=== PATIENT | female | born 1995 | race Caucasian/White ===

== ENCOUNTER 2019-11-28 09:00 | Outpatient (CLI) | payer MEDICAID ==
[2019-11-28] MEDS ORDERED: PRENAVITE1 TAB PO (09:12)
[2019-11-28] MEDS ORDERED: VITAMIN C500 M1 PO (09:13)
[2019-11-28 09:58] LABS: BACTERIA MANY /hpf (NEGATIVE); BILIRUBIN NEGATIVE (NEGATIVE); GLUCOSE NEGATIVE (NEGATIVE); KETONE NEGATIVE (NEGATIVE); NITRITE NEGATIVE (NEGATIVE); RED CELLS - URINE OCC /hpf (0-5); UROBILINOGEN NORMAL (NORMAL); WHITE CELLS - URINE 0-5 /hpf (NEGATIVE)
== END 2019-11-28 10:20 | disposition home or self-care (01) ==
LOC: D.LDO 09:00
PROVIDERS: ATTEND Obstetrics & Gynecology
DX: O26.899 Other specified pregnancy related conditions, unspecified trimester (principal); Z3A.00 Weeks of gestation of pregnancy not specified; M79.89 Other specified soft tissue disorders

== ENCOUNTER 2019-12-05 12:10 | Inpatient (IN) | payer MEDICAID ==
[2019-12-05] VITALS (8 sets, daily range): BP systolic 104–120; BP diastolic 53–74; Ht 157.5 cm; Wt 114.3 kg
[~2019-12-05] VITALS: Ht 157.5 cm; Wt 114.3 kg
--- NOTE | ~2019-12-05 | OP ---
PATIENT NAME: DENTON MADRID MEDICAL RECORD: [id number] LOCATION:[facility][id number] ADMISSION DATE:12/05/19 SURGEON: NETO HERRERA DO DATE OF OPERATION: 12/05/2019 PREOPERATIVE DIAGNOSES: Previous , oligohydramnios. POSTOPERATIVE DIAGNOSES: Previous , oligohydramnios. PRIMARY SURGEON: Neto Herrera DO ANESTHESIA: Spinal. PROCEDURE: Repeat low transverse section via Pfannenstiel incision. FINDINGS: Female , weight 5 pounds 1 ounce, Apgars 9 and 9, delivered at 1751. Nuchal cord times 3 reduced over the head prior to delivery of the fetus. Thin lower uterine segment. Normal appearing uterus, bilateral fallopian tubes and bilateral ovaries. SPECIMENS: Placenta and cord. ESTIMATED BLOOD LOSS: 800 cc. IV fluids: 2700 cc. URINE OUTPUT: 100 cc clear urine. COMPLICATIONS: None. CONDITION: Stable. DESCRIPTION OF THE PROCEDURE: Risks, benefits, alternatives and indications of the procedure were discussed with the patient. She voiced understanding of the procedure and signed the consent. She was taken to the OR. Spinal anesthesia was administered and found to be adequate. She was placed in the dorsal supine position with a leftward tilt. She was prepped and draped in normal sterile fashion. A Pfannenstiel skin incision was made with the scalpel and carried down to the underlying layer of the fascia with the Bovie. The fascia was incised in the midline and extended laterally. The inferior aspect of the fascial incision was grasped with Breana clamps and the rectus muscle was dissected off sharply. Attention was then turned to the superior aspect of the fascial incision. The rectus muscle was dissected off in a similar fashion. The rectus muscle was in the midline down to the level peritoneum. The peritoneum was identified and noted to be free of adherent bowel and entered bluntly. The peritoneum was further with gentle traction. The bladder blade was inserted. A thin lower uterine segment with a small uterine window was noted an incision was created in the lower uterine segment with the scalpel and the incision was extended with cephalad caudad traction. The infant's head was brought to the incision. Three nuchal cords were noted and reduced over the head prior to delivery of the body. The infant delivered without difficulty. Mouth and nose were suctioned. Cord was clamped and cut. The was handed off to waiting pediatricians. The placenta was manually removed. The uterus was exteriorized and a moist lap was used to assure complete removal of placental membranes. The hysterotomy was closed with 0 OPERATIVE REPORT [id number] DENTON MADRID Vicryl in a running locked fashion with good hemostasis. Uterus, tubes, and ovaries were noted to be normal and returned back to the abdominal cavity. A moist laparotomy sponge was used to assure complete removal of blood clots and fluid from the abdominal cavity prior to putting the uterus back into the abdominal cavity, it was irrigated with warm sterile water. The hysterotomy was then reinspected and noted to be hemostatic. The rectus muscle was closed with 2-0 Monocryl in a running fashion with good hemostasis. The fascial incision was closed with 0 Vicryl in a running fashion with good hemostasis. The subcutaneous fat was closed with 2-0 plain suture and the skin was closed with 3-0 Monocryl in a running fashion with Dermabond covering and new pressure dressing. All needle, lap, sponge, and instrument counts were correct times 2. The patient tolerated the procedure well. She was taken to the recovery room in stable condition. TRANSINT:[id number] Voice Confirmation ID: [id number] DOCUMENT ID: [id number] NETO HERRERA DO CC: [id number] DICTATION DATE: 12/05/191843 CONTROL CHEMIST: 12/05/191940 ADM IN [facility] [address] [place] [address]
[~2019-12-05 12:10] MED LIST: PRENAVITE1 TAB PO; VITAMIN C500 M1 PO
[2019-12-05 14:44] LABS: HEMATOCRIT 35.4 % (36.0-48.0); HEMOGLOBIN 11.3 g/dL (12-16); MCH 28.4 pg (26.0-34.0); MCHC 31.9 g/dL (31.0-37.0); MCV 88.9 fL (80.0-100.0); MEAN PLATELET VOLUME 8.9 fL (7.4-10.4); RBC 3.98 10x6/uL (4.00-5.40); RDW 14.4 % (11.5-14.5); WBC 10.8 10x3/uL (4.8-10.8)
--- NOTE | 2019-12-05 18:50 | NUR ---
REPORT TO PM SHIFT.
--- NOTE | 2019-12-05 19:31 | NUR ---
FUNDUS IS FIRM, MIDLINE. U1. TOSHA PAD IN PLACE. MODERATE RUBRA LOCHIA NOTED ON PAD. NO CLOTS PRESENT. WILL CONTINUE TO MONITOR.
--- NOTE | 2019-12-05 20:00 | NUR ---
RECEIVED PT VIA BED FROM POST C/S WITH DR HERRERA, PT TO ROOM 1219, IV IN LEFT HAND INTACT WITH NO REDNESS OR EDEMA INFUSING NS WITH PITOCIN AT 125 ML/HR, VS INITIATED, SCD'S CONNECTED TO PUMP AND WORKING PROPERLY, TO ROOM VIA NSY NURSE FOR , INFORMED PT THAT I WILL COME BACK SHORTLY AND DO TOSHA CARE, PT VERBALIZES UNDERSTANDING, [employer] WITH SMALL DRESSING CDI WITH NO DRAINAGE NOTED, ICE PACK ALREADY IN PLACED, BED IN LOW POSITION, SIDE RAILS X 2, CALL LIGHT IN REACH, FOB AT BEDSIDE
--- NOTE | 2019-12-05 21:45 | NUR ---
ASSESSMENT PER FLOW SHEET, VS CONTINUE, FF, ML, U/1, TOSHA CARE DONE WITH WET WARM WASH CLOTHS, LITE-MOD BLEEDING NOTED, WHITE CHUX AND TOSHA PAD CHANGED, FRESH ICE PACK TO ABD, SCOTT CATH INTACT DRAINING DARK YELLOW URINE, FRESH H20 AND LEMON ELIM IRA SODA SERVED, SCD'S CONTINUE ON AND WORKING PROPERLY, PT REQUESTS PAIN MED, INFORMED PT THAT I WILL CHECK TO SEE IF IT'S DUE AND I WILL BRING IT IN, PT VERBALIZES UNDERSTANDING, FOB AT BEDSIDE
--- NOTE | 2019-12-05 22:06 | NUR ---
NEW BAG OF NS WITH PITGEETA HUBER, ADM TORADOL AND MORPHINE SIVP PER MD ORDERS, SEE EMAR, PT DENIES FURTHER NEEDS
--- NOTE | 2019-12-06 | NUR ---
PT INFANT AT THIS TIME, VS COMPLETED, INFORMED PT THAT I WILL BE BACK SHORTLY TO DO TOSHA CARE, PT VERBALIZES UNDERSTANDING, RATES INC PAIN 2, DENIES FURTHER NEEDS, FOB AT BEDSIDE
--- NOTE | 2019-12-06 00:38 | NUR ---
PT LOSS CONTROL MANAGER LIGHT, REQUESTS ASSISTANCE IN GETTING TO WAKE UP TO BREASTFEED, NADIA RAMIREZ RN TO ROOM
--- NOTE | 2019-12-06 01:10 | NUR ---
PT BOTTLE FEEDING INFANT AT THIS TIME, SCOTT CATH EMPTIED, PT RATES INC PAIN 10/14, REQUESTED AND SERVED COLA AND FRESH H20, PT DENIES FURTHER NEEDS, FOB AT BEDSIDE
--- NOTE | 2019-12-06 02:20 | NUR ---
PT TIRE ADJUSTER LIGHT, C/O PAIN, ADM MORPHINE SIVP PER MD ORDERS, SEE EMAR, INFANT TO NSY VIA OPEN CRIB CART PER NADIA RAMIREZ, RN, PT DENIES FURTHER NEEDS AT THIS TIME
[2019-12-06 04:37] VITALS: BP 103/61
--- NOTE | 2019-12-06 04:37 | NUR ---
PT RESTING WITH EYES CLOSED, AROUSES TO SOFT VERBAL STIMULATION, VS OBTAINED, I&O'S COLLECTED, TOSHA CARE DONE WITH WET WARM WASH CLOTHS, LITE BLEEDING NOTED WITH NO CLOTS, WHITE CHUX AND TOSHA PAD CHANGED, GOWN WET FROM ICE PACK LEAKING, GOWN CHANGED, FRESH ICE PACK TO ABD, SCD'S CONTINUE ON AND WORKING PROPERLY, ADM TORADOL SIVP PER MD ORDERS, SEE EMAR, PT DENIES NEEDS, INFANT IN OPEN CRIB CART AND FOB AT BEDSIDE
--- NOTE | 2019-12-06 05:15 | NUR ---
PT RESTING WITH EYES CLOSED, RESP QUIET, NO DISTRESS NOTED, LEFT UNDISTURBED AT THIS TIME, SCD'S CONTINUE ON AND WORKING PROPERLY, INFANT IN OPEN CRIB CART AND FOB AT BEDSIDE
[2019-12-06 06:07] LABS: HEMATOCRIT 32.1 % (36.0-48.0); HEMOGLOBIN 10.9 g/dL (12-16); LYMPHOCYTES 19.5 % (15-50); MCV 85.4 fL (80.0-100.0); MEAN PLATELET VOLUME 8.7 fL (7.4-10.4); NEUTROPHILS 75.1 % (40-80); PLATELET COUNT 399 10x3/uL (130-400); RBC 3.76 10x6/uL (4.00-5.40); RDW 14.5 % (11.5-14.5); WBC 11.7 10x3/uL (4.8-10.8)
[2019-12-06 06:08] LABS: RAPID PLASMA REAGIN Non Reactive (Non Reactive)
--- NOTE | 2019-12-06 07:47 | NUR ---
AM ASSESSMENT COMPLETED, PT RATES PAIN AT 4/10 BUT WISHES TO EAT BEFORE PAIN MED IS GIVEN. BIKINI INCISION COVERED WITH LARGE WHITE BANDAGE THAT IS CLEAN AND DRY AT THIS TIME, FUNDUS FIRM AT U/1 WITH LIGHT BLEEDING NOTED. UNDERPAD CHANGED AND PT TILTED TO HER RIGHT SIDE. PITOCIN INFUSION COMPLETED AND IV SALINE LOCKED. SCDsBILAT PER ORDERS. SIDE RAILS UP X 2 WITH CALL LIGHT IN REACH.
[2019-12-06 08:00] VITALS: BP 104/70
--- NOTE | 2019-12-06 08:59 | NUR ---
NEW ORDERS RECEIVED FROM DR CHAVARRIA AFTER ROUNDS ARE COMPLETED.
--- NOTE | 2019-12-06 10:00 | NUR ---
SCOTT CATH REMOVED INTACT WITH OUTPUT OF 2100ML NOTED. TOSHA CARE PER THIS RN, PT IS THEN ABLE TO MOVE SELF TO SITTING UP ON SIDE OF BED, SHE DENIES NAUSEA OR FEELING DIZZY. UP TO BATHROOM, UNABLE TO VOID AT THIS TIME BUT REASSURED THAT WAS NOT UNCOMMON AFTER CATH REMOVEAL. WARM WET WASH CLOTHS PROVIDED, GOWN CHANGED, MESH BREIEF AND TOSHA PAD ON. UNDERPAD ON BED CHANGED. SALINE LOCK REMOVED FROM LEFT HAND PER PT REQUEST, STILL HAS IV ACCESS WITH SALINE LOVE LOCK TO RIGHT HAND. RATES PAIN AT 5-6/10, TORDAL AND PERCOCET GIVEN SCANNED TO EMAR. SPOUSE AT BEDSIDE, SIDE RAILS UP X 2 WITH CALL LIGHT IN REACH. DENIES NEEDS AT THIS TIME.
--- NOTE | 2019-12-06 12:23 | NUR ---
PT RATES PAIN AT 1/10 AND DENIES NEEDS AT THIS TIME.
--- NOTE | 2019-12-06 16:45 | NUR ---
PT PROVIDED WITH SHOWER SEAT AND TOWELS TO TAKE HER SHOWER, SIG OTHER STATES HE WILL BE PRESENT IF PT NEEDS ASSISTANCE.
--- NOTE | 2019-12-06 18:08 | NUR ---
PT OUT OF SHOWER AND DRESSED, PT DENIES WHEELCHAIR FOR TRANSFER STATING SHE WANTS TO WALK. AMB TO ROOM 1278 AND ORIENT TO ROOM WITHOUT QUESTIONS OR CONCERNS. NURSERY NOTIFIED OF ROOM CHANGE.
[2019-12-06 19:47] VITALS: BP 113/61
--- NOTE | 2019-12-06 19:47 | NUR ---
RN TO PT BEDSIDE FOR ASSESSMENT. FUNDUS FIRM, MIDLINE, 2 BELOW, SCANT RUBRA LOCHIA NOTED, PT STATES PAIN IS 3/10 TO ABDOMINAL INCISION AREA, DERMABOND IN PLACE. PT UP AND AMBULATING, PT STATES ALL HER NEEDS ARE CURRENTLY MET AT THIS TIME. CALL LIGHT WITHIN REACH, SIDE RAILS UP X2, BED IN LOWEST POSITION.
--- NOTE | 2019-12-06 23:41 | NUR ---
RN TO PT BEDSIDE FOR ROUNDING, PT SLEEPING AT THIS TIME. BED IN LOWEST POSITION, SIDE RAILS UP X2, CALL LIGHT WITHIN REACH.
--- NOTE | 2019-12-07 03:10 | NUR ---
RN TO PT BEDSIDE FOR ROUNDING, PT LAYING IN BED WITH IN ARM. VSS. PT STATES PAIN IS 4/10 TO ABDOMINAL INCISION, FUNDUS FIRM, MIDLINE, 2 BELOW SCANT RUBRA LOCHIA NOTED ON PERIPAD. TORADOL 10MG PO ADMINISTERED PER MD ORDERS. PT STATES ALL OTHER NEEDS ARE MET AT THIS TIME. BED IN LOWEST POSITION, SIDE RAILS UP X2, CALL LIGHT IN REACH.
[2019-12-07 03:11] VITALS: BP 117/58
--- NOTE | 2019-12-07 07:18 | NUR ---
bedside report not completed as pt is sleeping at this time. resp even and unlabored, color pink, side rails up x2, bed in low position, in rolling crib adjacent to bed, also nad. will monitor. call light within easy reach of pt.
[2019-12-07 07:34] VITALS: BP 109/53
--- NOTE | 2019-12-07 07:35 | NUR ---
AM ASSESSMENT COMPLETED, RESP EVEN AND UNLABORED, WAKES TO VERBAL STIMULI AND DELIVERY OF BREAKFAST TRAY, VSS, AFEBRILE, HEART RRR, LUNGS CTAB, ABD SOFT NO DISTENSION TO LIGHT PALPATION, FUNDUS FIRM AT U/3 AND MIDLINE, INCISION TO LOW TRANSVERSE INCISION CDI WITH DERMABOND, REPORTS NO DIFFICULTY WITH VOIDING, REPORTS FLATUS, MCKEON FREELY, NEGATIVE JEREMY'S SIGN B LE. DENIES NEEDS OR CONCERNS AT THIS TIME, REVIEWED PLAN OF CARE TO INCLUDE AMBULATION IN HALLS, PAIN MANAGEMENT. STATES UNDERSTANDING OF ALL INFORMATION REVIEWED, WILL MONITOR FOR CHANGE IN CONDITION. CALL LIGHT IN EASY REACH OF PT, BED IN LOW POSITION, BED BRAKES LOCKED, SIDE RAILS UP X2.
--- NOTE | 2019-12-07 08:51 | NUR ---
ROUNDS COMPLETED, PT CONSUMED 100% BREAKFAST PROVIDED, DENIES NEEDS, CONCERNS, OR PROBLEMS AT THIS TIME. CALL LIGHT IN EASY REACH, WILL MONITOR.
--- NOTE | 2019-12-07 09:37 | NUR ---
pt requests prn and scheduled pain med, same provided. cup of ice water provided, nad noted. significant other at bs. call light in easy reach of pt. side rails up x2.
--- NOTE | 2019-12-07 10:35 | NUR ---
ROUNDS COMPLETED, NAD NOTED, DENIES NEEDS OR CONCERNS, WILL MONITOR.
--- NOTE | 2019-12-07 11:35 | NUR ---
ROUNDS COMPLETED, ON PHONE USING VIDEO CHAT TO TALK WITH CHILDREN WHO ARE AT HOME WITH SIGNIFICANT OTHER. REVIEWED TIMEFRAME FOR DISCHARGE THIS PM, QUESTIONS ANSWERED, DENIES NEEDS OR CONCERNS, WILL MONITOR.
--- NOTE | 2019-12-07 12:10 | NUR ---
ROUNDS COMPLETED, DENIES NEEDS OR CONCERNS. LUNCH TRAY PROVIDED PER DIETARY STAFF AT THIS TIME. CALL LIGHT IN EASY REACH.
--- NOTE | 2019-12-07 13:43 | NUR ---
rounds completed, nad noted, in arms, recumbent in bed. will monitor.
--- NOTE | 2019-12-07 14:20 | NUR ---
ROUNDS COMPLETED, DENIES NEEDS OR CONCERNS, WILL MONITOR.
--- NOTE | 2019-12-07 15:02 | NUR ---
pain meds given per pt request for c/o pain, denies needs or concerns, will monitor for change in conditoin. call light in easy reach.
--- NOTE | 2019-12-07 15:50 | NUR ---
discharge instructions reviewed with pt and pt spouse, questions answered, and handouts provided for review once at home. nad noted. denies needs or concerns, in arms. call light in easy reach of pt.
--- NOTE | 2019-12-07 17:37 | NUR ---
rounds completed, nad noted. pt and significant other packing for anticipated discharge now. resp even and unlabored. will monitor.
--- NOTE | 2019-12-07 18:10 | NUR ---
PT DISCHARGED WITH IN ARMS VIA WHEELCHAIR, SIGNIFICANT OTHER AT SIDE. NO DISTRESS NOTED.
== END 2019-12-07 18:10 | disposition home or self-care (01) | DRG 788 ==
LOC: D.LDO 12:10 → D.WS 13:30 → D.LD 13:30 → D.WS 20:00 → D.LD 12-06 18:09
PROVIDERS: ADMIT Student in an Organized Health Care Education/Training Program; ATTEND Student in an Organized Health Care Education/Training Program
PROC: 10D00Z1 Extraction of Products of Conception, Low, Open Approach (ICD-10-PCS; principal; 2019-12-05 17:00)
DX: O41.03X0 Oligohydramnios, third trimester, not applicable or unspecified (principal); Z3A.38 38 weeks gestation of pregnancy; Z37.0 Single live birth; O99.824 Streptococcus B carrier state complicating childbirth; O69.81X0 Labor and delivery complicated by cord around neck, without compression, not applicable or unspecified